=== PATIENT | female | born 1980 | race Caucasian/White ===

== ENCOUNTER 2016-12-20 13:38 | Emergency (ER) | payer BC ==
[2016-12-20 14:54] VITALS: BP 121/71
--- NOTE | 2016-12-20 15:15 | UC ---
Ear Complaint HPI - History of Current Complaint Chief Complaint: UCEar Stated Complaint: LEFT EAR PAIN Hx Obtained From: Patient Hx Last Menstrual Period: n/a ?: No Onset/Duration: Gradual Onset - feeling of fluid in the left ear with occasional pain. Dizziness like lightheaded., Lasting Weeks - 1, Still Present Severity Initially: Mild Severity Currently: Mild - was worse yesterday but better today. Aggravating Factors: Nothing - except moving the head or bending over with vertigo type symptoms. Alleviating Factors: Nothing Associated Signs/Symptoms: Negative: Hearing Loss, Foreign Body Sensation, Trauma to Ear, Swelling @, URI Symptoms Related History: Seasonal Allergies - Allergies/Home Medications Allergies/Adverse Reactions: Allergies Allergy/AdvReac Type Severity Reaction Status Date / Time seasonal Allergy Congestion Uncoded 12/20/16 14:55 Home Medications: Home Medications Aleve 220mg 2 tab PO ONCE PRN 12/20/16 [History] PMH/Surg Hx/FS Hx/Imm Hx Endocrine History Of: Denies: Diabetes, Thyroid Disease Cardiovascular History Of: Denies: Cardiac Disorders, Hypertension, Pacemaker/ICD, Congestive Heart Failure Respiratory History Of: Reports: Asthma - exercise induced Denies: COPD GI/ History Of: Denies: Ulcer, Renal Disease - Surgical History Surgical History: Yes Surgery Procedure, Year, and Place: LT KNEE ACL SURGERY 2002, LT KNEE MENISCUS SURGERY 2003 - Family History Known Family History: Negative: Cardiac Disease, Hypertension, Diabetes - Social History Occupation: Employed Full-time Lives: With Family Alcohol Use: Rare Substance Use Type: None Smoking Status (MU): Never Smoked Tobacco Have You Smoked in the Last Year: No Review of Systems ENT: Ear Ache - occasional, Nasal Discharge, Other - lightheaded sensation. Musculoskeletal: Arthralgia - mild low back pain. Neurological: Paresthesia - Tingling started left leg on/off over the last 1 1/ 2 months. Worse with sitting, better with standing. Lower left arm in the last 3 weeks. None now, just the leg with current symptoms. All Other Systems Reviewed And Are Negative: Yes Physical Exam Triage Information Reviewed: Yes Appearance: Well-Appearing, No Pain Distress, Well-Nourished Vital Signs: Initial Vital Signs Temp 98 F 12/20/16 14:45 Pulse 68 12/20/16 14:45 Resp 18 12/20/16 14:45 BP 121/71 12/20/16 14:45 Pulse Ox 100 12/20/16 14:45 Vital Signs Reviewed: Yes Eyes: Positive: Conjunctiva Clear ENT: Positive: Pharynx normal, Nasal congestion - with allergic changes, TMs normal Neck exam: Normal Respiratory: Positive: Lungs clear, Wheezing - slight wheezing with cough Cardiovascular Exam: Normal Musculoskeletal Exam: Normal Neurological: Positive: Other: - DTR 2+ knee and ankle. Pinprick testing with hyperaesthesia in the left L5 dermatome. Psychological Exam: Normal Skin Exam: Normal Ear Complaint Course/Dx - Differential Dx/Diagnosis Differential Diagnosis/HQI/PQRI: Otitis Externa, Otitis Media, URI Provider Diagnoses: Allergic Rhinitis. Eustachian tube dysfunction bilaterally. Lumbar radiculopathy Discharge - Discharge Plan Condition: Stable Disposition: HOME Prescriptions: predniSONE TAB* [Deltasone TAB*] 20 mg PO DAILY #18 tab Additional Instructions: [employer] SINUS RINSE: CHECK OUT AT [facility] Saline nasal wash helps with mucous, allergies and congestion. It can be used up to twice a day or only as needed. Use lukewarm tap water. It does not have to be sterilized or distilled water. Do 1/3 on each side and snort out of both nostrils. Repeat the process with 1/6 of the bottle on each side with snorting in between to finish the solution in the bottle
--- NOTE | 2016-12-20 16:06 | RAD ---
Indication: L5 radiculitis. 5 views lumbar spine demonstrate vertebral bodies to be normal in height. Disc spaces all well-preserved. Pedicles appear intact. IMPRESSION: No fracture of the lumbar spine is noted.
== END 2016-12-20 16:24 | disposition home or self-care (01) ==
LOC: UCCORT 13:38
DX: J30.9 Allergic rhinitis, unspecified (principal); H69.93 Unspecified Eustachian tube disorder, bilateral; M54.16 Radiculopathy, lumbar region
CPT/HCPCS: 72110; 99212; G0463

== ENCOUNTER 2017-11-27 07:11 | Emergency (ER) | payer BC ==
[2017-11-27 07:45] VITALS: BP 110/65
--- NOTE | 2017-11-27 07:59 | UC ---
Throat Pain/Nasal Jaiden HPI - HPI Summary HPI Summary: white tongue x 1 month + discomfort in her mouth and tongue no sore throat, no fever, no chills, no abdominal pain - History of Current Complaint Chief Complaint: UCGeneralIllness Stated Complaint: ORAL COMPLAINT Time Seen by Provider: 11/27/17 07:34 Hx Obtained From: Patient Hx Last Menstrual Period: unknown, uterine ablation ?: No Onset/Duration: Gradual Onset, Lasting Weeks - 4, Still Present Severity: Moderate Pain Intensity: 0 Cough: None Associated Signs & Symptoms: Negative: Dysphagia, Drooling, Wheezing, Hoarseness , Sinus Discomfort, Nasal Discharge, Fever, Vomiting, Rash - Allergies/Home Medications Allergies/Adverse Reactions: Allergies Allergy/AdvReac Type Severity Reaction Status Date / Time seasonal Allergy Congestion Uncoded 11/27/17 07:40 Home Medications: Home Medications Omeprazole CAP* [Prilosec CAP* 20 MG] 20 mg PO DAILY 11/27/17 [History Confirmed 11/27/17] PMH/Surg Hx/FS Hx/Imm Hx Previously Healthy: Yes - Surgical History Surgical History: Yes Surgery Procedure, Year, and Place: LT KNEE ACL SURGERY 2002, LT KNEE MENISCUS SURGERY 2003 - Family History Known Family History: Negative: Cardiac Disease, Hypertension, Diabetes - Social History Alcohol Use: Rare Substance Use Type: None Smoking Status (MU): Never Smoked Tobacco Have You Smoked in the Last Year: No Review of Systems Constitutional: Negative Skin: Negative Eyes: Negative ENT: Negative Respiratory: Negative Cardiovascular: Negative Gastrointestinal: Negative Is Patient Immunocompromised?: No All Other Systems Reviewed And Are Negative: Yes Physical Exam Triage Information Reviewed: Yes Appearance: Well-Appearing, No Pain Distress, Well-Nourished Vital Signs: Initial Vital Signs Temp 98 F 11/27/17 07:36 Pulse 64 11/27/17 07:36 Resp 16 11/27/17 07:36 BP 110/65 11/27/17 07:36 Pulse Ox 100 11/27/17 07:36 Vital Signs Reviewed: Yes Eye Exam: Normal Eyes: Positive: Conjunctiva Clear ENT: Positive: Normal ENT inspection, Hearing grossly normal, Pharynx normal, Other - tongue : + thrush Neck: Positive: Supple, Nontender, No Lymphadenopathy Respiratory: Positive: Chest non-tender, Lungs clear, Normal breath sounds Cardiovascular: Positive: RRR, No Murmur, Pulses Normal Abdominal Exam: Normal Abdomen Description: Positive: Nontender, Soft Bowel Sounds: Positive: Present Skin Exam: Normal Throat Pain/Nasal Course/Dx - Differential Dx/Diagnosis Provider Diagnoses: oral thrush Discharge - Discharge Plan Condition: Stable Disposition: HOME Prescriptions: Nystatin SUSPENSION* 5 ml PO QID #200 ml Patient Education Materials: Oral Candidiasis (ED) Referrals: Patito Taylor MD [Primary Care Provider] - 2 Weeks
== END 2017-11-27 08:11 | disposition home or self-care (01) ==
LOC: UCCORT 07:11
DX: B37.0 Candidal stomatitis (principal)
CPT/HCPCS: 99212; G0463

== ENCOUNTER 2019-07-08 09:32 | Emergency (ER) | payer BC ==
[2019-07-08 10:28] VITALS: BP 112/80
--- NOTE | 2019-07-08 10:45 | UC ---
General HPI - HPI Summary HPI Summary: 39 year old female presents requesting to be tested for Lyme Disease. She sates she had a tick bite early this past summer that she removed, states it was probably on her for a few hours, was not treated. Denies [place] rash however , has noted pain in the joints of her hands, elbows and feet over the past 2-3 months. No associated swelling nor erythema of the joints, awakens and feels achy. - History of Current Complaint Chief Complaint: UCGeneralIllness Stated Complaint: JOINT PAIN SKIN Time Seen by Provider: 07/08/19 10:44 Hx Obtained From: Patient Hx Last Menstrual Period: unknown, uterine ablation Onset/Duration: Gradual Onset, Lasting Weeks - 6-8 Pain Intensity: 4 Associated Signs & Symptoms: Positive: Back Pain - sciatica, following with [facility]. Negative: Fever, Weakness - Allergy/Home Medications Allergies/Adverse Reactions: Allergies Allergy/AdvReac Type Severity Reaction Status Date / Time seasonal Allergy Congestion Uncoded 07/08/19 10:28 Home Medications: Home Medications NK [No Home Medications Reported] 07/08/19 [History Confirmed 07/08/19] PMH/Surg Hx/FS Hx/Imm Hx Previously Healthy: Yes - left sciatica - Surgical History Surgical History: Yes Surgery Procedure, Year, and Place: LT KNEE ACL SURGERY 2002, LT KNEE MENISCUS SURGERY 2003 - Family History Known Family History: Negative: Cardiac Disease, Hypertension, Diabetes - Social History Alcohol Use: Occasionally Substance Use Type: None Smoking Status (MU): Never Smoked Tobacco Have You Smoked in the Last Year: No Review of Systems All Other Systems Reviewed And Are Negative: Yes Constitutional: Negative: Fever, Chills, Fatigue Skin: Negative: Rash, Bruising Eyes: Negative: Blurred Vision, Diplopia ENT: Negative: Sore Throat, Sinus Congestion Respiratory: Negative: Shortness Of Breath, Cough Cardiovascular: Negative: Palpitations, Chest Pain Gastrointestinal: Negative: Abdominal Pain, Vomiting, Diarrhea, Nausea Genitourinary: Negative: Dysuria Motor: Positive: Other - pain/achiness of her hand, elbow and foot joints.. Negative: Decreased ROM Neurovascular: Negative: Decreased Sensation Musculoskeletal: Positive: Arthralgia, Other: - no erthyrma nor warmth of joints.. Negative: Decreased ROM, Edema, Myalgia Psychological: Positive: Negative Is Patient Immunocompromised?: No Physical Exam Triage Information Reviewed: Yes Appearance: Well-Appearing, No Pain Distress, Well-Nourished Vital Signs: Initial Vital Signs Temp 98.7 F 07/08/19 10:22 Pulse 69 07/08/19 10:22 Resp 18 07/08/19 10:22 BP 112/80 07/08/19 10:22 Pulse Ox 100 07/08/19 10:22 Eyes: Positive: Conjunctiva Clear ENT: Positive: Normal ENT inspection Neck: Positive: Supple, Nontender, No Lymphadenopathy Respiratory: Positive: Chest non-tender, Lungs clear, Normal breath sounds Cardiovascular: Positive: RRR, No Murmur, Pulses Normal Abdomen Description: Positive: Nontender, Soft Musculoskeletal: Positive: Strength Intact, ROM Intact, No Edema, Other: - no joint swelling nor erythema. Neurological: Positive: Alert, Muscle Tone Normal Psychological Exam: Normal Skin: Negative: Rashes, Significant Lesion(s) Course/Dx - Differential Dx - Multi-Symptom Differential Diagnoses: Other - Lyme Disease - Diagnoses Provider Diagnosis: Arthralgia Discharge ED - Sign-Out/Discharge Documenting (check all that apply): Patient Departure All imaging exams completed and their final reports reviewed: No Studies - Discharge Plan Condition: Stable Disposition: HOME Patient Education Materials: Arthralgia (ED) Referrals: Fifi Manzanares PA [Primary Care Provider] - Additional Instructions: Lyme Titer is being checked today. If you do not hear about the results within the next week, please call Urgent Care for results. If testing is negative, I recommend following up with your Primary Care Physician for further evaluation. - Billing Disposition and Condition Condition: STABLE Disposition: Home
== END 2019-07-08 11:04 | disposition home or self-care (01) ==
LOC: UCCORT 09:32
DX: M25.542 Pain in joints of left hand (principal); M25.541 Pain in joints of right hand; M25.522 Pain in left elbow; M25.521 Pain in right elbow; M25.572 Pain in left ankle and joints of left foot; M25.571 Pain in right ankle and joints of right foot
CPT/HCPCS: 36415; 86618; 99211; G0463